=== PATIENT | female | born 1985 | race Caucasian/White ===

== ENCOUNTER 2020-03-08 11:02 | Emergency (ER) | payer MEDICAID, SELFPAY ==
[2020-03-08 12:03] VITALS: BP 117/73; PULSE 72; RESP 16; TEMP 36.5; O2SAT 97; BMI 34.0
--- NOTE | 2020-03-08 12:24 | ED_ITS ---
HPI - Abdominal Pain General: Chief Complaint: Abdominal Pain Stated Complaint: abd pain/N/V/D Time Seen by Provider: 03/08/20 12:08 Source: patient Mode of arrival: ambulatory Limitations: no limitations History of Present Illness: HPI narrative: 34-year-old female patient presents to the emergency department with 4-day history of lower abdominal pain. She reports pain is located in her lower abdomen and her pubic area. She reports history of partial hysterectomy, x2, tubal ligation; just moved here from [place] has not established a primary care physician. She reports chronic abdominal pain since 2016. States medicated with hydrocodone which did not help pain. States pain was intermittent until 4 days ago. Has progressively worsened. She reports nausea, denies vomiting or fever/chills. She reports foul-smelling gas, last normal bowel movement yesterda. Reports some diarrhea today. MD elicited complaint: abdominal pain Pertinent past history: other (Chronic abdominal pain, exploratory lap with scar/adhesion tissue removal 2016.) Onset (ago): day(s) (4) Pain Consistency: constant Location: Suprapubic and Pelvis Severity: moderate Quality: cramping, aching and dull Exacerbating factors: movement and other (with straightening of legs) Relieving factors: rest Associated Symptoms: Reports bloating, change in stool character, diarrhea, dysuria, excessive flatus, loose stools and nausea; Denies chills and fever(s) Review of Systems General: Reports: 10 or more systems reviewed and unremarkable except in HPI and below Const: Denies: fever(s), chills or diaphoresis Eyes: Denies: blurry vision or eye redness ENMT: Denies: throat pain, dental pain or disequilibrium Card: Denies: chest pain, palpitations or irregular heart rhythm Resp: Denies: dyspnea, productive cough, non-productive cough or wheezing GI: Reports: nausea, diarrhea, bloating, excessive flatus and change in stool character : Reports: dysuria Musc: Reports: back pain (lower); Denies: neck pain, joint pain, joint warmth or joint stiffness Skin/Breast: Denies: rash or pruritus Neuro: Reports: difficulty walking (due to abdominal pain); Denies: headache(s), numbness in extremities, weakness in extremities or behavioral changes Psych: Reports: anxiety and depression; Denies: visual hallucinations, auditory hallucinations, suicidal ideation or homicidal ideation Jc/Lymph: Denies: easy bruising PFSH ED PFSH: Social History (Updated 03/08/20 @ 12:06 by Shaggy Yip RN) Smoking and tobacco status: never smoked Alcohol intake: current Alcohol intake frequency: holidays/special occasions only Substance/Drug Use: current Substance/Drug use frequency: few times a month Substance/Drug use type: Marijuana Current gender identity: Female Female Reproductive History: Spontaneous abortions: No Physical Exam Const: COMMON NORMALS: patient oriented x3, healthy appearing and alert GENERAL APPEARANCE: cooperative, disheveled, diaphoretic, well hydrated and other (appears in pain) NUTRITIONAL APPEARANCE: obese ORIENTATION/CONSCIOUSNESS: Yes awake, Yes oriented to person, Yes oriented to place and Yes oriented to time HENMT: COMMON NORMALS: normocephalic, Normal external nose present and moist oral mucous membranes HEAD & SCALP: normocephalic NOSE: Normal external nose present Eye: COMMON NORMALS: Equal, round and reactive pupils present and EOMs intact bilaterally GENERAL EYE: appearance normal, both eyes and all related structures PUPIL: Yes Equal, round and reactive pupils present Neck/C-Spine: COMMON NORMALS: full ROM and no lymphadenopathy GENERAL: Yes normal visual inspection and Yes trachea midline CERVICAL SPINE: Yes cervical ROM normal Lymph: LYMPHATIC: no lymphadenopathy noted Chest: COMMONS NORMALS: normal inspection of the chest Resp: COMMON NORMALS: normal respiratory effort and clear to auscultation bilaterally EFFORT & INSPECTION: Yes able to speak in complete sentences AUSCULTATION: clear to auscultation bilaterally Cardio: COMMON NORMALS: regular rhythm, S1 normal heart sound present, S2 normal heart sound present and Peripheral pulses 2+ throughout RHYTHM: regular rhythm HEART SOUNDS: S1 normal heart sound present and S2 normal heart sound present PERIPHERAL PULSES: Peripheral pulses 2+ throughout GI: COMMON NORMALS: Soft to palpation INSPECTION: Yes abdominal distension, Yes central obesity, Yes scar, No Laceration(s) present (GI), No GI erythema present and Yes Abdominal panniculus present AUSCULTATION: Yes normoactive bowel sounds PALPATION: Yes Soft to palpation and Yes Tenderness to palpation present (GI) Details: RLQ, RUQ and other (pubis) RECTAL EXAM: no laceration(s) noted : COMMON NORMALS: Yes no CVA tenderness BLADDER/KIDNEY EXAM: Yes no CVA tenderness Back/Pelvis: COMMON NORMALS: no CVA tenderness and thoracic and lumbar spine normal to inspection THORACIC SPINE/UPPER BACK: Yes normal to inspection LUMBAR SPINE/LOWER BACK: Yes normal to inspection Extremity: COMMON NORMALS: normal to inspection and capillary refill normal Neuro: COMMON NORMALS: patient oriented x3 and no focal motor deficits SENSORIUM/ORIENTATION: Yes alert, Yes oriented to person, Yes oriented to place and Yes oriented to time Psych: COMMON NORMALS: mental status grossly normal, Normal thought process present and cooperative ACTIVITY/MOTOR BEHAVIOR: Yes appropriate eye contact THOUGHT PROCESS: Normal thought process present Skin: COMMON NORMALS: no rashes or lesions noted and turgor normal GENERAL SKIN EXAM: no rashes or lesions noted and turgor normal Course Vital Signs: Vital signs: Vital Signs Temperature 97.7 F 03/08/20 12:03 Pulse Rate 53 L 03/08/20 13:43 Respiratory Rate 20 H 03/08/20 15:29 Blood Pressure 123/72 03/08/20 13:43 Pulse Oximetry 99 03/08/20 13:43 MDM - Abdominal Pain Differential Diagnosis: Differential diagnosis abdominal pain: Likely acute appendicitis, gastroenteritis and pancreatitis Lab Data: Labs: Lab Results 03/08/20 03/08/20 03/08/20 Range/Units 12:17 12:17 12:17 WBC 9.2 (4.0-10.0) 10^3/ uL RBC 4.75 (4.1-5.3) 10^6/u L Hgb 13.4 (11.5-15.3) g/dL Hct 41.8 (37.0-47.0) % MCV 88.0 (81-99) fL MCH 28.2 (28.0-34.0) pg MCHC 32.1 (30.0-36.0) g/dL RDW 14.2 (12.1-15.1) % Plt Count 235 (130-400) 10^3/c mm MPV 9.6 (7.4-10.4) fL Neut % (Auto) 63.6 % Lymph % (Auto) 26.9 % [place] % (Auto) 5.0 % Eos % (Auto) 3.3 % Baso % (Auto) 0.9 % Neut # (Auto) 5.84 (1.8-7.7) 10^3/u L Lymph # (Auto) 2.5 (0.8-4.8) 10^3/u L [place] # (Auto) 0.5 (0.2-0.9) 10^3/u L Eos # (Auto) 0.3 (0.0-0.8) 10^3/u L Baso # (Auto) 0.1 (0.0-0.1) 10^3/u L Nucleated RBC % (a uto) 0 % Nucleated RBCs # 0.0 /100WBC Sodium 138 (136-145) mmol/L Potassium 4.2 (3.5-5.1) mmol/L Chloride 105 (98-107) mmol/L Carbon Dioxide 24 (22-29) mmol/L Anion Gap 13.2 (5-19) BUN 14 (6-20) mg/dL Creatinine 0.8 (0.5-0.9) mg/dL GFR Calculation 81.2 L (90-130) mL/min Glucose 96 (65-115) mg/dL Calculated Osmolal ity 286 (285-295) mOsm/k g Calcium 9.6 (8.5-10.5) mg/dL Total Bilirubin 0.4 (0.15-1.2) mg/dL AST 12 (0-32) U/L ALT 12 (0-33) U/L Alkaline Phosphata se 55 (35-105) IU/L Total Protein 7.0 (6.6-8.7) g/dL Albumin 4.3 (3.5-5.2) g/dL Globulin 2.7 (1.3-4.6) g/dL Lipase 25 (13-60) U/L HCG, Qual Negative (Negative) Urine Color (Yellow) Urine Appearance (CLEAR) Urine pH (5-7) Ur Specific Gravit y (1.005-1.030) Urine Protein (Negative) Urine Glucose (UA) (Normal) Urine Ketones (Negative) Urine Blood (Negative) Urine Nitrate (Negative) Urine Bilirubin (Negative) Urine Urobilinogen (Negative) mg/dL Ur Leukocyte Britni ase (Negative) 03/08/20 Range/Units 12:17 WBC (4.0-10.0) 10^3/ uL RBC (4.1-5.3) 10^6/u L Hgb (11.5-15.3) g/dL Hct (37.0-47.0) % MCV (81-99) fL MCH (28.0-34.0) pg MCHC (30.0-36.0) g/dL RDW (12.1-15.1) % Plt Count (130-400) 10^3/c mm MPV (7.4-10.4) fL Neut % (Auto) % Lymph % (Auto) % [place] % (Auto) % Eos % (Auto) % Baso % (Auto) % Neut # (Auto) (1.8-7.7) 10^3/u L Lymph # (Auto) (0.8-4.8) 10^3/u L [place] # (Auto) (0.2-0.9) 10^3/u L Eos # (Auto) (0.0-0.8) 10^3/u L Baso # (Auto) (0.0-0.1) 10^3/u L Nucleated RBC % (a uto) % Nucleated RBCs # /100WBC Sodium (136-145) mmol/L Potassium (3.5-5.1) mmol/L Chloride (98-107) mmol/L Carbon Dioxide (22-29) mmol/L Anion Gap (5-19) BUN (6-20) mg/dL Creatinine (0.5-0.9) mg/dL GFR Calculation (90-130) mL/min Glucose (65-115) mg/dL Calculated Osmolal ity (285-295) mOsm/k g Calcium (8.5-10.5) mg/dL Total Bilirubin (0.15-1.2) mg/dL AST (0-32) U/L ALT (0-33) U/L Alkaline Phosphata se (35-105) IU/L Total Protein (6.6-8.7) g/dL Albumin (3.5-5.2) g/dL Globulin (1.3-4.6) g/dL Lipase (13-60) U/L HCG, Qual (Negative) Urine Color Yellow (Yellow) Urine Appearance Clear (CLEAR) Urine pH 5 (5-7) Ur Specific Gravit y 1.015 (1.005-1.030) Urine Protein Neg (Negative) Urine Glucose (UA) Norm (Normal) Urine Ketones Negative (Negative) Urine Blood Neg (Negative) Urine Nitrate Negative (Negative) Urine Bilirubin Neg (Negative) Urine Urobilinogen Norm (Negative) mg/dL Ur Leukocyte Britni ase Negative (Negative) Imaging Data ^: CT Abd/Pel: Radiologist's impression: [facility] [place] [address] CT Scan Report Signed Patient: Jackelyn Lara Unit #: [id number] : [id number] Age/Sex: 34 / F ADM Date: 03/08/20 Loc: ER Room/Bed: Attending Dr: Ordering Provider/Ordering MD: Kimmy Leija Date of Service: 03/08/20 Procedure(s): CT abdomen pelvis w con* [id number] Accession Number(s): [id number] Report Number: [id number] PROCEDURE INFORMATION: Exam: CT Abdomen And Pelvis With Contrast Exam date and time: 03/08/2020 3:17 PM Age: 34 years old Clinical indication: Abdominal pain; Localized; Lower TECHNIQUE: Imaging protocol: Computed tomography of the abdomen and pelvis with intravenous contrast. Radiation optimization: All CT scans at this facility use at least one of these dose optimization techniques: automated exposure control; mA and/or kV adjustment per patient size (includes targeted exams where dose is matched to clinical indication); or iterative reconstruction. Contrast material: OMNI 300; Contrast volume: 95 ml; Contrast route: INTRAVENOUS (IV); COMPARISON: No relevant prior studies available. RADIATION DOSE METRICS: Total DLP (mGy-cm): 1049.56 FINDINGS: Liver: A few tiny hepatic hypodensities are too small to characterize. Gallbladder and bile ducts: Normal. No calcified stones. No ductal dilation. Pancreas: Normal. No ductal dilation. Spleen: Normal. No splenomegaly. Adrenal glands: Normal. No mass. Kidneys and ureters: There is no evidence of hydronephrosis. There is no evidence of renal calcifications. Stomach and bowel: There is no evidence of intestinal perforation or obstruction. There is no evidence of colitis/diverticulitis. There is moderately excessive colonic stool content. Appendix: A normal appendix is identified. Intraperitoneal space: Unremarkable. No free air. No significant fluid collection. Vasculature: Unremarkable.No abdominal aortic aneurysm. Lymph nodes: Unremarkable.No enlarged lymph nodes. Urinary bladder: There is nonspecific bladder wall thickening. This may be related to incomplete distention. Reproductive: There has been a hysterectomy. The ovaries/adnexa are unremarkable. Bones/joints: Unremarkable. No acute fracture. There are moderate degenerative changes at the pubic symphysis. Soft tissues: There is a tiny fat filled umbilical hernia with mild haziness of the periumbilical fat that may reflect mild cellulitis without an abscess. There is subtle induration of the fat in the pelvis/lower buttocks bilaterally on image 84 that may reflect recent contusion or strain just distal to the insertion of the hamstring tendons. There is no fluid collection and tendon insertions are intact. CT/CT abdomen pelvis w con* [id number] IMPRESSION: 1. There is a tiny fat filled umbilical hernia with mild haziness of the periumbilical fat that may reflect mild cellulitis without an abscess. 2. There is subtle induration of the fat in the pelvis/lower buttocks bilaterally on image 84 that may reflect recent contusion or strain just distal to the insertion of the hamstring tendons. There is no fluid collection and tendon insertions are intact. 3. The solid organs are intact. No bowel thickening or inflammatory changes. No hydronephrosis. Radiation Dose CTDIVOL = (mGy): DLP = 1049.56 (mGy-cm) Dictated By: Jigna Gillette Signed By: Jigna Gillette Signed Date/Time: 03/08/201558 DD/ 56 Discharge Plan Discharge Patient Disposition: Home Clinical Impression: Constipation Qualifiers: Constipation type: slow transit constipation Qualified Code(s): K59.01 - Slow transit constipation Abdominal pain Qualifiers: Abdominal location: generalized Qualified Code(s): R10.84 - Generalized abdominal pain Condition: Stable Prescriptions: New Miralax 17 gram/dose powder 17 g PO DAILY Qty: 238 RF: 0 No Action gabapentin 300 mg capsule 300 mg PO DAILY RF: 0 fluoxetine [Prozac] 40 mg capsule 40 mg PO DAILY RF: 0 lithium carbonate 300 mg capsule 900 mg PO DAILY Qty: 90 RF: 1 ibuprofen 200 mg Tablet 800 mg PO PRN RF: 0 Tylenol PM Extra Strength 25-500 mg Tablet 2 tab PO BEDTIME PRN (Reason: unknown) RF: 0 Discharge Orders: Discharge Order (Routine); Ordered 03/08/20 Ordered By: Kimmy Leija Discharge Diet: GI Soft Discharge Activity: Resume usual activity Patient Instructions: Constipation (ED), Abdominal Pain (ED) Activity Restrictions/Additional Instructions: Take mag citrate until all gone, may place on ice to help tolerate taste. High-fiber diet encouraged, fruits and vegetables in your diet are essential to help with constipation Return to the emergency department if you develop worsening abdominal pain, fever, nausea vomiting Follow-up with a primary care provider this week without fail Coding Level of Care Code ED [facility] Manager for Chg Fwd Exam Comprehensive
[2020-03-08 12:35] VITALS: RESP 18
[2020-03-08 12:35] LABS: Add Urine Microscopic? NO
[2020-03-08] MEDS: ondansetron 2 mg/ML SDV 2 mL 4 MG IVP (12:35)
[2020-03-08] MEDS: morphine 4 mg/mL SDV 1 mL 2 MG IVP ×2 (12:35→15:29)
[2020-03-08 12:39] LABS: Basophils # 0.1 10^3/uL (0.0-0.1); Basophils % 0.9 %; Eosinophils # 0.3 10^3/uL (0.0-0.8); Eosinophils % 3.3 %; Hematocrit 41.8 % (37.0-47.0); Hemoglobin 13.4 g/dL (11.5-15.3); Lymphocytes # 2.5 10^3/uL (0.8-4.8); Lymphocytes % 26.9 %; Mean Corpuscular HGB Conc 32.1 g/dL (30.0-36.0); Mean Corpuscular Hemoglobin 28.2 pg (28.0-34.0); Mean Platelet Volume 9.6 fL (7.4-10.4); Monocytes # 0.5 10^3/uL (0.2-0.9); Neutrophils # 5.84 10^3/uL (1.8-7.7); Neutrophils % 63.6 %; Nucleated Red Blood Cells % 0 %; Platelet Count 235 10^3/cmm (130-400); Red Blood Count 4.75 10^6/uL (4.1-5.3); Red Cell Distribution Width 14.2 % (12.1-15.1); White Blood Count 9.2 10^3/uL (4.0-10.0)
[2020-03-08 12:58] LABS: HCG, Serum Qual Negative (Negative)
[2020-03-08 13:02] LABS: Alanine Aminotransferase 12 U/L (0-33); Albumin Level 4.3 g/dL (3.5-5.2); Alkaline Phosphatase 55 IU/L (35-105); Anion Gap 13.2 (5-19); Aspartate Amino Transferase 12 U/L (0-32); Blood Urea Nitrogen 14 mg/dL (6-20); Calcium 9.6 mg/dL (8.5-10.5); Carbon Dioxide 24 mmol/L (22-29); Chloride 105 mmol/L (98-107); Globulin 2.7 g/dL (1.3-4.6); Glomerular Filtration Rate 81.2 mL/min (90-130); Glucose 96 mg/dL (65-115); Lipase 25 U/L (13-60); Osmolality Calculated 286 mOsm/kg (285-295); Potassium 4.2 mmol/L (3.5-5.1); Sodium 138 mmol/L (136-145); Total Bilirubin 0.4 mg/dL (0.15-1.2)
[2020-03-08 13:43] VITALS: BP 123/72; PULSE 53; RESP 18; O2SAT 99
[2020-03-08 14:43] LABS: Bilirubin Urine Neg (Negative); Blood Urine Neg (Negative); Glucose Urine UA Norm (Normal); Ketones Urine Negative (Negative); Leukocyte Esterase Urine Negative (Negative); Nitrate Urine Negative (Negative); Protein Urine Neg (Negative); Specific Gravity, Urine 1.015 (1.005-1.030); Urine Appearance Clear (CLEAR); Urine Color Yellow (Yellow); Urobilinogen Urine Norm (Negative); pH Urine 5 (5-7)
--- NOTE | 2020-03-08 14:53 | CTR_ITS ---
PROCEDURE INFORMATION: Exam: CT Abdomen And Pelvis With Contrast Exam date and time: 03/08/2020 3:17 PM Age: 34 years old Clinical indication: Abdominal pain; Localized; Lower TECHNIQUE: Imaging protocol: Computed tomography of the abdomen and pelvis with intravenous contrast. Radiation optimization: All CT scans at this facility use at least one of these dose optimization techniques: automated exposure control; mA and/or kV adjustment per patient size (includes targeted exams where dose is matched to clinical indication); or iterative reconstruction. Contrast material: OMNI 300; Contrast volume: 95 ml; Contrast route: INTRAVENOUS (IV); COMPARISON: No relevant prior studies available. RADIATION DOSE METRICS: Total DLP (mGy-cm): 1049.56 FINDINGS: Liver: A few tiny hepatic hypodensities are too small to characterize. Gallbladder and bile ducts: Normal. No calcified stones. No ductal dilation. Pancreas: Normal. No ductal dilation. Spleen: Normal. No splenomegaly. Adrenal glands: Normal. No mass. Kidneys and ureters: There is no evidence of hydronephrosis. There is no evidence of renal calcifications. Stomach and bowel: There is no evidence of intestinal perforation or obstruction. There is no evidence of colitis/diverticulitis. There is moderately excessive colonic stool content. Appendix: A normal appendix is identified. Intraperitoneal space: Unremarkable. No free air. No significant fluid collection. Vasculature: Unremarkable.No abdominal aortic aneurysm. Lymph nodes: Unremarkable.No enlarged lymph nodes. Urinary bladder: There is nonspecific bladder wall thickening. This may be related to incomplete distention. Reproductive: There has been a hysterectomy. The ovaries/adnexa are unremarkable. Bones/joints: Unremarkable. No acute fracture. There are moderate degenerative changes at the pubic symphysis. Soft tissues: There is a tiny fat filled umbilical hernia with mild haziness of the periumbilical fat that may reflect mild cellulitis without an abscess. There is subtle induration of the fat in the pelvis/lower buttocks bilaterally on image 84 that may reflect recent contusion or strain just distal to the insertion of the hamstring tendons. There is no fluid collection and tendon insertions are intact. CT/CT abdomen pelvis w con* [id number] IMPRESSION: 1. There is a tiny fat filled umbilical hernia with mild haziness of the periumbilical fat that may reflect mild cellulitis without an abscess. 2. There is subtle induration of the fat in the pelvis/lower buttocks bilaterally on image 84 that may reflect recent contusion or strain just distal to the insertion of the hamstring tendons. There is no fluid collection and tendon insertions are intact. 3. The solid organs are intact. No bowel thickening or inflammatory changes. No hydronephrosis. Radiation Dose CTDIVOL = (mGy): DLP = 1049.56 (mGy-cm)
[2020-03-08 15:29] VITALS: RESP 20
[2020-03-08] MEDS: iohexol 300 mg/mL 100 mL Btl IV (15:30)
[2020-03-08] MEDS: magnesium citrate Btl 296 mL PO (16:49)
--- NOTE | 2020-03-10 14:23 | DCPLANNER ---
airport operations manager had message to speak with patient about getting established with a primary care physician. airport operations manager spoke with patient, and she stated that she has a primary care and has an appointment scheduled.
== END 2020-03-08 16:49 | disposition home or self-care (01) ==
PROVIDERS: Emergency Medicine; Emergency Provider Nurse Practitioner Family
DX: K59.01 Slow transit constipation (principal)
CPT/HCPCS: 12345; 74177; 80053; 81003; 83690; 84703; 85025; 96374; 96375; 96376; 99282; 99283; J2270; J2405; Q9967

== ENCOUNTER 2020-03-21 11:15 | Outpatient (CLI) | payer MEDICAID, SELFPAY ==
--- NOTE | 2020-03-21 11:23 | XR_ITS ---
WS: [id number] Acute abdomen series, 03/21/2020 Clinical Data: K62.89 - Other specified diseases of anus and rectum Comparison: None. Findings: In the chest there are no nodules, masses or effusions. The heart is normal. The pulmonary vascularity is not increased. The bones of the thorax are unremarkable. No free air is seen beneath the diaphragms. No abnormal intra-abdominal masses or calcifications are seen. There is a moderate amount of fecal material throughout colon. No dilated small bowel or colon is seen. XR/XR acute abdomen series [id number] Impression: Negative acute abdomen series.
== END 2020-03-21 11:16 | disposition home or self-care (01) ==
LOC: RADWPI 11:20
PROVIDERS: PCP Family Medicine; Visit Provider Surgery
DX: K62.89 Other specified diseases of anus and rectum (principal)
CPT/HCPCS: 74022

== ENCOUNTER 2020-03-21 12:22 | Outpatient (CLI) | payer MEDICAID, SELFPAY ==
[2020-03-21 12:42] LABS: Add Urine Microscopic? NO
[2020-03-21 12:46] LABS: Basophils # 0.1 10^3/uL (0.0-0.1); Basophils % 0.8 %; Eosinophils # 0.5 10^3/uL (0.0-0.8); Hematocrit 40.5 % (37.0-47.0); Hemoglobin 13.3 g/dL (11.5-15.3); Lymphocytes # 2.9 10^3/uL (0.8-4.8); Mean Corpuscular HGB Conc 32.8 g/dL (30.0-36.0); Mean Corpuscular Hemoglobin 28.7 pg (28.0-34.0); Mean Corpuscular Volume 87.5 fL (81-99); Mean Platelet Volume 9.1 fL (7.4-10.4); Monocytes # 0.5 10^3/uL (0.2-0.9); Monocytes % 4.7 %; Neutrophils # 7.23 10^3/uL (1.8-7.7); Neutrophils % 64.1 %; Nucleated Red Blood Cells % 0 %; Platelet Count 248 10^3/cmm (130-400); Red Blood Count 4.63 10^6/uL (4.1-5.3); Red Cell Distribution Width 14.3 % (12.1-15.1); White Blood Count 11.3 10^3/uL (4.0-10.0)
[2020-03-21 12:56] LABS: Bilirubin Urine Neg (Negative); Blood Urine Neg (Negative); Glucose Urine UA Norm (Normal); Ketones Urine Negative (Negative); Leukocyte Esterase Urine Negative (Negative); Nitrate Urine Negative (Negative); Protein Urine Neg (Negative); Sulfosalicylic Acid Urine Negative (Negative); Urine Appearance Clear (CLEAR); Urine Color Yellow (Yellow); Urobilinogen Urine Norm (Negative); pH Urine 8 (5-7)
[2020-03-21 13:04] LABS: Alanine Aminotransferase 12 U/L (0-33); Albumin Level 4.4 g/dL (3.5-5.2); Alkaline Phosphatase 59 IU/L (35-105); Anion Gap 14.1 (5-19); Aspartate Amino Transferase 12 U/L (0-32); Blood Urea Nitrogen 11 mg/dL (6-20); Calcium 9.8 mg/dL (8.5-10.5); Carbon Dioxide 26 mmol/L (22-29); Chloride 103 mmol/L (98-107); Globulin 2.6 g/dL (1.3-4.6); Glomerular Filtration Rate 70.8 mL/min (90-130); Glucose 111 mg/dL (65-115); Lipase 27 U/L (13-60); Osmolality Calculated 288 mOsm/kg (285-295); Potassium 4.1 mmol/L (3.5-5.1); Sodium 139 mmol/L (136-145); Total Bilirubin 0.5 mg/dL (0.15-1.2)
== END 2020-03-21 12:23 | disposition home or self-care (01) ==
LOC: LAB 12:25
PROVIDERS: PCP Family Medicine; Visit Provider Surgery
DX: K62.89 Other specified diseases of anus and rectum (principal); R10.9 Unspecified abdominal pain
CPT/HCPCS: 80053; 81003; 83690; 85025

== ENCOUNTER 2020-05-05 06:00 | Outpatient (RCR) | payer MEDICAID, SELFPAY | END 2020-05-18 23:59 | disposition home or self-care (01) | LOC: MPT 06:00 | PROVIDERS: PCP Family Medicine; Referring Provider Family Medicine; Visit Provider Family Medicine | DX: R10.2 Pelvic and perineal pain (principal); G89.29 Other chronic pain | CPT/HCPCS: 97110; 97140; 97161 ==

== ENCOUNTER 2020-05-19 06:00 | Outpatient (RCR) | payer MEDICAID, SELFPAY | END 2020-06-15 23:59 | disposition home or self-care (01) | LOC: MPT 06:00 | PROVIDERS: PCP Family Medicine; Referring Provider Family Medicine; Visit Provider Family Medicine | DX: R10.2 Pelvic and perineal pain (principal); G89.29 Other chronic pain | CPT/HCPCS: 97140; 97530 ==

== ENCOUNTER 2020-05-29 12:28 | Emergency (ER) | payer MEDICAID, SELFPAY ==
[2020-05-29 12:35] VITALS: BP 132/64; PULSE 64; RESP 16; TEMP 36.9; O2SAT 99; BMI 33.8
[2020-05-29 13:11] LABS: Add Urine Microscopic? NO; Bilirubin Urine Neg (Negative); Blood Urine Neg (Negative); Glucose Urine UA Norm (Normal); Ketones Urine Negative (Negative); Leukocyte Esterase Urine Negative (Negative); Nitrate Urine Negative (Negative); Protein Urine Neg (Negative); Urine Appearance Clear (CLEAR); Urine Color Yellow (Yellow); Urobilinogen Urine Norm (Negative); pH Urine 5 (5-7)
[2020-05-29 15:25] LABS: Hematocrit 38.3 % (37.0-47.0); Mean Corpuscular HGB Conc 33.9 g/dL (30.0-36.0); Mean Corpuscular Hemoglobin 29.1 pg (28.0-34.0); Mean Corpuscular Volume 85.7 fL (81-99); Mean Platelet Volume 9.5 fL (7.4-10.4); Platelet Count 258 10^3/cmm (130-400); Red Blood Count 4.47 10^6/uL (4.1-5.3); Red Cell Distribution Width 14.4 % (12.1-15.1); White Blood Count 15.3 10^3/uL (4.0-10.0)
--- NOTE | 2020-05-29 15:28 | CT_ITS ---
WS: [id number] CT ABDOMEN PELVIS TECHNIQUE: Contrast-enhanced CT of the abdomen and pelvis with coronal and sagittal reformatted image s. CLINICAL INFORMATION: abd pain worsening, elevated WBC, possible Gallstones/polyps COMPARISON: CT chest and ultrasound 2020 DLP: 1096.[address] scans at [facility] use at least one of these dose optimization techniques: automat ed exposure control; mA and/or kV adjustment per patient size (includes targeted exams where dose is matched to clinical indication); or iterative reconstruction. FINDINGS:Small enhancing right corpus luteum or hemorrhagic cyst right ovary measuring 1.5 CM. Small amount of free fluid in the right cul-de-sac. This can be followed up with ultrasound. Prior hysterec art. Mild diffuse fatty infiltration of the liver. Normal gallbladder. Normal spleen. Lung bases are well aerated. Normal GE junction. Normal portal vein and splenic vein. No fluid in the gallbladder fossa. Small gallbladder polyps better seen on the recent ultrasound. No gallbladder wall thickening. Adrenal glands are normal. Normal renal parenchymal enhancement. No hydronephrosis. Normal pancreas. Splenic vein and superior mesenteric vein are normal. Normal sigmoid colon. No evidence of high-grade small or large bowel obstruction. CT/CT abdomen pelvis w con* [id number] IMPRESSION: 1. Small enhancing right corpus luteum or hemorrhagic cyst right ovary measuri ng 1.3 CM appears improved compared to May 19, 2020 CT. Small amount of fr ee fluid in the right cul-de-sac. This can be followed up with ultrasound. 2. Mild hepatomegaly with enlargement of the right hepatic lobe. Mild diffuse fatty infiltration of the liver. 3. Small gallbladder polyps better visualized on recent ultrasound. No fluid i n the gallbladder fossa. 4. No evidence of small or large bowel obstruction. 5. Normal renal parenchymal enhancement bilaterally. No hydronephrosis.
[2020-05-29] MEDS: ondansetron 2 mg/ML SDV 2 mL 4 MG IVP (15:32)
--- NOTE | 2020-05-29 15:33 | ED_ITS ---
HPI - Abdominal Pain General: Chief Complaint: Abdominal Pain Stated Complaint: ABDOMINAL PAIN Time Seen by Provider: 05/29/20 15:15 History of Present Illness: HPI narrative: The patient is a 34-year-old female with past medical history UTIs and cholelithiasis who comes to the ER complaining of severe lower and upper right abdominal pain since last night. She has had the pain worsening for past 5 days but last night it became severe. She called a telemedicine appointment and they told her to come to the ER. Chart review reveals she has some chronic abdominal pain and umbilical hernia and is seeing Dr. Rodríguez as well for these problems. MD elicited complaint: abdominal pain Pertinent past history: past UTI Location: LUQ, RUQ and LLQ Severity: severe Pain scale (0-10): 10 Quality: cramping and sharp Exacerbating factors: vomiting Associated Symptoms: Reports nausea and vomiting Review of Systems General: Reports: 10 or more systems reviewed and unremarkable except in HPI and below Const: Denies: fatigue Eyes: Denies: change in vision, blurry vision or eye redness ENMT: Denies: throat pain, swelling of lips/tongue, ear or mastoid pain or nasal congestion Card: Denies: chest pain, palpitations, irregular heart rhythm, edema, dyspnea on exertion or orthopnea Resp: Denies: dyspnea, productive cough or non-productive cough GI: Reports: abdominal pain, nausea and vomiting : Denies: flank pain, difficulty voiding, urinary frequency or urinary urgency Musc: Denies: neck pain, back pain, extremity pain, joint pain, joint redness, limited range of motion or muscle weakness Skin/Breast: Denies: rash, pruritus, erythema, skin pain or skin tenderness Neuro: Denies: headache(s), numbness in extremities, weakness in extremities, sensory changes, difficulty walking, dizziness, confusion or Slurred speech present Psych: Denies: anxiety or depression Endo: Denies: polyuria All/Imm: Denies: urticaria, throat swelling or tongue swelling PFSH ED PFSH: Medical History Bipolar disorder Borderline personality disorder YOLANDE (generalized anxiety disorder) History of stillbirth PTSD (post-traumatic stress disorder) Surgical History H/O section H/O esophagogastroduodenoscopy 2018 H/O tubal ligation H/O: hysterectomy History of laparoscopy S/P colonoscopic polypectomy Family History Mother Cancer Denies family history of Diabetes CAD (coronary artery disease) Anesthesia complication Bleeding disorder Hypertension Social History Smoking and tobacco status: current every day smoker Alcohol intake: current Alcohol intake frequency: holidays/special occasions only Household members: spouse Marital status: Current occupational status: unemployed History of recent travel: No Current gender identity: Female Female Reproductive History: Spontaneous abortions: No Physical Exam Const: COMMON NORMALS: no acute distress, average body habitus, patient oriented x3, no limitations, healthy appearing, alert and well nourished GENERAL APPEARANCE: cooperative, comfortable, well kempt and well developed ORIENTATION/CONSCIOUSNESS: Yes awake, Yes oriented to person, Yes oriented to place and Yes oriented to time HENMT: COMMON NORMALS: normocephalic, external ears normal and Normal external nose present HEAD & SCALP: normal to inspection and normocephalic NOSE: Normal external nose present EXTERNAL EAR: Yes external ears normal MOUTH: Normal oral and palatal mucosa present THROAT: posterior oropharynx normal Eye: COMMON NORMALS: Equal, round and reactive pupils present and EOMs intact bilaterally GENERAL EYE: appearance normal, both eyes and all related structures PUPIL: Yes Equal, round and reactive pupils present Neck/C-Spine: COMMON NORMALS: full ROM, no lymphadenopathy, no meningeal signs and no JVD GENERAL: Yes normal visual inspection Lymph: LYMPHATIC: no lymphadenopathy noted Chest: COMMONS NORMALS: normal inspection of the chest and normal palpation of entire chest wall Resp: COMMON NORMALS: normal respiratory effort, No retractions, No use of accessory muscles, clear to auscultation bilaterally and percussion normal EFFORT & INSPECTION: Yes able to speak in complete sentences AUSCULTATION: clear to auscultation bilaterally PERCUSSION: percussion normal Cardio: COMMON NORMALS: no JVD, regular rate, regular rhythm, S1 normal heart sound present, S2 normal heart sound present and Peripheral pulses 2+ throughout RATE: regular rate RHYTHM: regular rhythm HEART SOUNDS: S1 normal heart sound present and S2 normal heart sound present PERIPHERAL PULSES: Peripheral pulses 2+ throughout GI: COMMON NORMALS: Normal to inspection, nondistended, normoactive bowel sounds present, Soft to palpation and no masses INSPECTION: Yes normal to inspection PALPATION: Yes Soft to palpation and Yes Tenderness to palpation present (GI) (Mild tenderness in those areas. No rebound tenderness. Soft) Details: LLQ, RLQ and RUQ : COMMON NORMALS: Yes no CVA tenderness BLADDER/KIDNEY EXAM: Yes no CVA tenderness Back/Pelvis: COMMON NORMALS: no CVA tenderness, thoracic and lumbar spine normal to inspection, no thoracic nor lumbar tenderness and thoraco-lumbar ROM normal Extremity: COMMON NORMALS: normal to inspection, full ROM, capillary refill normal, no joint enlargement and no pedal edema GENERAL: Yes normal exam except as noted Neuro: COMMON NORMALS: patient oriented x3, CN's II-XII intact bilaterally, moves all extremities, no focal motor deficits, no sensory deficits noted and gait normal SENSORIUM/ORIENTATION: Yes alert, Yes oriented to person, Yes oriented to place and Yes oriented to time MENINGEAL SIGNS: Yes no meningeal signs Psych: COMMON NORMALS: mental status grossly normal, Normal thought process present, cooperative, normal affect and speech normal APPEARANCE: Yes well kempt ATTITUDE: Yes calm SPEECH: Yes normal speech THOUGHT PROCESS: Normal thought process present Skin: COMMON NORMALS: no rashes or lesions noted GENERAL SKIN EXAM: no rashes or lesions noted Course Vital Signs: Vital signs: Vital Signs Temperature 98.5 F 05/29/20 12:35 Pulse Rate 73 05/29/20 20:48 Respiratory Rate 18 05/29/20 19:18 Blood Pressure 124/83 05/29/20 19:04 Pulse Oximetry 97 05/29/20 20:48 MDM - Abdominal Pain MDM Narrative: Medical decision making narrative: The patient has been not vomiting and was dehydrated. She was given IV fluids and pain control which improved her pain. White count was 15 on arrival. Likely from vomiting and dehydration. CT abdomen pelvis was negative for any acute causes of pain but did show gallbladder polyps which she is aware of.. She has chronic abdominal pain and a psychiatric history likely contributing to her pain. Recommended following up as an outpatient with Dr. Rodríguez. Discussed with him on the phone and he agrees with the plan of care. Lab Data: Labs: Lab Results 05/29/20 05/29/20 05/29/20 Range/Units 12:51 15:16 15:16 WBC 15.3 H (4.0-10.0) 10^3/ uL RBC 4.47 (4.1-5.3) 10^6/u L Hgb 13.0 (11.5-15.3) g/dL Hct 38.3 (37.0-47.0) % MCV 85.7 (81-99) fL MCH 29.1 (28.0-34.0) pg MCHC 33.9 (30.0-36.0) g/dL RDW 14.4 (12.1-15.1) % Plt Count 258 (130-400) 10^3/c mm MPV 9.5 (7.4-10.4) fL Total Counted 100 (0-100) Atypical Lymphs % 1.0 (0-5) % Absolute Neutrophi ls 10.9 H (1.4-6.5) 10^3/c mm Segmented Neutroph ils 71 % Abs Segm Neuts (Ma n) 10.9 H (1.6-7.1) 10/cmm Band Neutrophils 0.0 % Abs Band Neuts (Ma n) 0.0 (0.0-1.2) 10^3/c mm Lymphocytes (Manua l) 23 % Monocytes (Manual) 3.0 % Absolute Monocytes 0.5 (0.1-0.6) 10^3/c mm Eosinophils (Manua l) 2 % Absolute Eosinophi ls 0.3 (0.0-0.7) 10^3/c mm Basophils (Manual) 0.0 % Absolute Basophils 0.0 (0.0-0.2) 10^3/c mm Platelet Estimate Normal (Normal) Sodium 141 (136-145) mmol/L Potassium 3.9 (3.5-5.1) mmol/L Chloride 105 (98-107) mmol/L Carbon Dioxide 21 L (22-29) mmol/L Anion Gap 18.9 (5-19) BUN 9 (6-20) mg/dL Creatinine 0.6 (0.5-0.9) mg/dL GFR Calculation 113.1 (90-130) mL/min Glucose 90 (65-115) mg/dL Calculated Osmolal ity 290 (285-295) mOsm/k g Lactate (0.5-2.2) mmol/L Calcium 8.2 L (8.5-10.5) mg/dL Total Bilirubin 0.5 (0.15-1.2) mg/dL AST 14 (0-32) U/L ALT 12 (0-33) U/L Alkaline Phosphata se 62 (35-105) IU/L Total Protein 6.8 (6.6-8.7) g/dL Albumin 3.9 (3.5-5.2) g/dL Globulin 2.9 (1.3-4.6) g/dL Lipase 18 (13-60) U/L HCG, Qual (Negative) Urine Color Yellow (Yellow) Urine Appearance Clear (CLEAR) Urine pH 5 (5-7) Ur Specific Gravit y 1.020 (1.005-1.030) Urine Protein Neg (Negative) Urine Glucose (UA) Norm (Normal) Urine Ketones Negative (Negative) Urine Blood Neg (Negative) Urine Nitrate Negative (Negative) Urine Bilirubin Neg (Negative) Urine Urobilinogen Norm (Negative) mg/dL Ur Leukocyte Britni ase Negative (Negative) Chestnut (0.6-1.2) mmol/L 05/29/20 05/29/20 05/29/20 Range/Units 15:16 15:35 20:05 WBC (4.0-10.0) 10^3/ uL RBC (4.1-5.3) 10^6/u L Hgb (11.5-15.3) g/dL Hct (37.0-47.0) % MCV (81-99) fL MCH (28.0-34.0) pg MCHC (30.0-36.0) g/dL RDW (12.1-15.1) % Plt Count (130-400) 10^3/c mm MPV (7.4-10.4) fL Total Counted (0-100) Atypical Lymphs % (0-5) % Absolute Neutrophi ls (1.4-6.5) 10^3/c mm Segmented Neutroph ils % Abs Segm Neuts (Ma n) (1.6-7.1) 10/cmm Band Neutrophils % Abs Band Neuts (Ma n) (0.0-1.2) 10^3/c mm Lymphocytes (Manua l) % Monocytes (Manual) % Absolute Monocytes (0.1-0.6) 10^3/c mm Eosinophils (Manua l) % Absolute Eosinophi ls (0.0-0.7) 10^3/c mm Basophils (Manual) % Absolute Basophils (0.0-0.2) 10^3/c mm Platelet Estimate (Normal) Sodium (136-145) mmol/L Potassium (3.5-5.1) mmol/L Chloride (98-107) mmol/L Carbon Dioxide (22-29) mmol/L Anion Gap (5-19) BUN (6-20) mg/dL Creatinine (0.5-0.9) mg/dL GFR Calculation (90-130) mL/min Glucose (65-115) mg/dL Calculated Osmolal ity (285-295) mOsm/k g Lactate 1.1 (0.5-2.2) mmol/L Calcium (8.5-10.5) mg/dL Total Bilirubin (0.15-1.2) mg/dL AST (0-32) U/L ALT (0-33) U/L Alkaline Phosphata se (35-105) IU/L Total Protein (6.6-8.7) g/dL Albumin (3.5-5.2) g/dL Globulin (1.3-4.6) g/dL Lipase (13-60) U/L HCG, Qual Negative (Negative) Urine Color (Yellow) Urine Appearance (CLEAR) Urine pH (5-7) Ur Specific Gravit y (1.005-1.030) Urine Protein (Negative) Urine Glucose (UA) (Normal) Urine Ketones (Negative) Urine Blood (Negative) Urine Nitrate (Negative) Urine Bilirubin (Negative) Urine Urobilinogen (Negative) mg/dL Ur Leukocyte Britni ase (Negative) Chestnut < 0.1 L (0.6-1.2) mmol/L Discharge Plan Discharge Patient Disposition: Home Clinical Impression: Abdominal pain, chronic, generalized, Gall bladder polyp Condition: Stable Prescriptions: [place] 5-325 mg tablet 1 tab PO Q6H PRN (Reason: pain) Qty: 20 RF: 0 No Action fluoxetine [Prozac] 40 mg capsule 40 mg PO DAILY RF: 0 olanzapine 7.5 mg tablet 7.5 mg PO DAILY RF: 0 lithium carbonate 300 mg capsule 900 mg PO DAILY Qty: 90 RF: 2 gabapentin 400 mg capsule 400 mg PO TID 30 Days Qty: 90 RF: 2 hydroxyzine HCl 25 mg tablet 25 mg PO DAILY PRN (Reason: anxiety) 30 Days Qty: 30 RF: 2 ropinirole 0.25 mg tablet 0.25 mg PO DAILY Qty: 30 RF: 0 ibuprofen 200 mg Tablet 800 mg PO PRN RF: 0 Tylenol PM Extra Strength 25-500 mg Tablet 2 tab PO BEDTIME PRN (Reason: unknown) RF: 0 Miralax 17 gram/dose powder 17 g PO DAILY Qty: 238 RF: 0 Discharge Orders: Discharge ED (Routine); Ordered 05/29/20 Ordered By: Asher Caal Referrals: Diann Oliveros MD [Primary Care Provider] - Discharge Diet: Advance as tolerated Discharge Activity: Resume usual activity Patient Instructions: Abdominal Pain (ED), Opioid Safety Activity Restrictions/Additional Instructions: You have abdominal pain of unclear cause but it is likely related to your chronic abdominal pain that you have daily. Please follow-up with Dr. Rodríguez in the clinic within a week and he will likely schedule surgery to remove your gallbladder at that time. Return to the ER with worsening symptoms. Take the hydrocodone for severe pain only and do not mix with drugs, alcohol, nor operate machinery while using this medication. Coding Level of Care Code ED [employer] for Roberto Lemus Exam Comprehensive
[2020-05-29 15:40] LABS: Absolute Eosinophils 0.3 10^3/cmm (0.0-0.7); Absolute Neutrophil 10.9 10^3/cmm (1.4-6.5); Absolute Segmented Neutrophil 10.9 10/cmm (1.6-7.1); Eosinophils 2 %; Lymphocytes 23 %; Monocytes Absolute 0.5 10^3/cmm (0.1-0.6); Platelet Estimate Normal (Normal); Segmented Neutrophils 71 %; Total Cells Counted 100 (0-100)
[2020-05-29] MEDS: iohexol 300 mg/mL 100 mL Btl IV (15:40)
[2020-05-29 15:56] LABS: Alanine Aminotransferase 12 U/L (0-33); Albumin Level 3.9 g/dL (3.5-5.2); Alkaline Phosphatase 62 IU/L (35-105); Anion Gap 18.9 (5-19); Aspartate Amino Transferase 14 U/L (0-32); Blood Urea Nitrogen 9 mg/dL (6-20); Calcium 8.2 mg/dL (8.5-10.5); Carbon Dioxide 21 mmol/L (22-29); Chloride 105 mmol/L (98-107); Globulin 2.9 g/dL (1.3-4.6); Glomerular Filtration Rate 113.1 mL/min (90-130); Glucose 90 mg/dL (65-115); Lipase 18 U/L (13-60); Osmolality Calculated 290 mOsm/kg (285-295); Potassium 3.9 mmol/L (3.5-5.1); Sodium 141 mmol/L (136-145); Total Bilirubin 0.5 mg/dL (0.15-1.2); Total Protein 6.8 g/dL (6.6-8.7)
[2020-05-29 16:22] LABS: HCG, Serum Qual Negative (Negative)
[2020-05-29] MEDS: morphine 4 mg/mL SDV 1 mL IM (16:26)
[2020-05-29] MEDS: sodium chloride 0.9% 1,000 ML 999 ML IV (16:27)
[2020-05-29 16:29] LABS: Lactate (Lactic Acid level) 1.1 mmol/L (0.5-2.2)
[2020-05-29 16:36] VITALS: BP 120/66; PULSE 57; O2SAT 99
[2020-05-29 17:24] VITALS: BP 128/73; PULSE 67; O2SAT 98
[2020-05-29 19:04] VITALS: BP 124/83; PULSE 70; O2SAT 100
[2020-05-29 19:18] VITALS: RESP 18
[2020-05-29] MEDS: morphine 4 mg/mL SDV 1 mL 2 MG IVP (19:18)
[2020-05-29 20:36] LABS: Lithium < 0.1 mmol/L (0.6-1.2)
[2020-05-29 20:48] VITALS: PULSE 73; O2SAT 97
== END 2020-05-29 20:48 | disposition home or self-care (01) ==
PROVIDERS: Family Medicine; Emergency Provider Family Medicine; PCP Family Medicine
DX: G89.29 Other chronic pain (principal); R10.84 Generalized abdominal pain; K82.4 Cholesterolosis of gallbladder; F17.210 Nicotine dependence, cigarettes, uncomplicated
CPT/HCPCS: 36415; 74177; 80053; 80178; 81003; 83605; 83690; 84703; 85007; 85027; 96361; 96372; 96374; 96375; 99283; J2270; J2405; J7030; Q9967

== ENCOUNTER → 2020-05-30 14:01 | Outpatient (BNVA) | payer MEDICAID, SELFPAY | PROVIDERS: PCP Family Medicine; Visit Provider Surgery | DX: Z01.818 Encounter for other preprocedural examination (principal) | CPT/HCPCS: 87635 ==

== ENCOUNTER 2020-06-02 09:17 | Day surgery (SDC) | payer MEDICAID, SELFPAY ==
[2020-05-30 16:45] VITALS: BMI 33.8
[2020-06-02] VITALS (10 sets, daily range): BP systolic 99–146; BP diastolic 63–99; PULSE 60–86; RESP 12–18; TEMP 36.2–36.9; O2SAT 95–100
--- NOTE | 2020-06-02 10:07 | P.ANESASSM_ITS ---
Pre-Anesthetic Assessment Pre-Anesthetic Assessment: Height/Weight: Height 1.55 m Weight 81.193 kg Temp Pulse Resp BP Pulse Ox 97.2 F L 60 18 99/63 95 06/02/20 09:55 06/02/20 09:55 06/02/20 09:55 06/02/20 09:55 06/02/20 09:55 Preop Diagnosis: Cholelithiasis Proposed Procedure: Operation Date: 06/02/20 10:35 Proposed Procedures p Laparoscopic Cholecystectomy 74690 k80.20(Not Applicable) - Cyrus Rodríguez MD Familial anesthetic complications: None Last intake: Intake Last Liquid Date 06/01/20 Last Liquid Time 23:59 Last Solid Date 06/01/20 Last Solid Time 22:00 Social: Social History: No alcohol and No tobacco Comment: Patient Vapes Exam: Pre-Anes Outpt Exam: alert, oriented x 3, clear to auscultation bilater ally and regular rate & rhythm Airway: Cervical ROM: WNL MP: 3 Dentition: Full Anesthetic Plan: ASA status: 1 Anesthesia: General Risk of > 500 ml blood loss (7ml/kg in children): No PFSH Anesthesia PFSH: Medical History Bipolar disorder Borderline personality disorder YOLANDE (generalized anxiety disorder) History of stillbirth PTSD (post-traumatic stress disorder) Surgical History H/O section H/O esophagogastroduodenoscopy 2018 H/O tubal ligation H/O: hysterectomy History of laparoscopy S/P colonoscopic polypectomy Family History Mother Cancer Denies family history of Diabetes CAD (coronary artery disease) Anesthesia complication Bleeding disorder Hypertension Social History Smoking and tobacco status: current every day smoker Alcohol intake: current Alcohol intake frequency: holidays/special occasions only Household members: spouse Marital status: Current occupational status: unemployed History of recent travel: No Current gender identity: Female Female Reproductive History: Spontaneous abortions: No Data Anesthesia Cardiac Studies: No Data to Display
[2020-06-02] MEDS: sodium chloride 0.9% 1,000 ML 30 ML IV (10:21)
--- NOTE | 2020-06-02 12:34 | W.PM.OPSUD ---
Surgery/Procedure H&P Update DATE OF PROCEDURE: June 02, 2020 DATE H&P PERFORMED: 05/26/20 H&P UPDATE INFORMATION: I have reviewed H&P completed within last 30 days, I have examined patient prior to procedure and No changes to prior documentation PREOP DIAGNOSIS: Cholelithiasis PLANNED PROCEDURE: Operation Date: 06/02/20 10:35 Proposed Procedures p Laparoscopic Cholecystectomy 81408 k80.20(Not Applicable) - Cyrus Rodríguez MD
--- NOTE | 2020-06-02 13:50 | P.OP_ITS ---
Operative Report Date of procedure: June 02, 2020 Pre-op Diagnosis: Cholelithiasis Pre-op Diagnosis: Chronic abdominal pain status post prior laparoscopy Post-op Diagnosis: No evidence of adhesions Normal small bowel, colon, stomach, liver Cholelithiasis Procedure Done: Laparoscopic cholecystectomy Specimens removed/disposition: Gallbladder Surgeon: Cyrus Rodríguez Anesthesia: General Condition: stable Disposition: PACU Procedure: The patient was taken to the operating room and was intubated under general anesthesia. After the antibiotic had been administered, the abdomen was prepped and draped in a sterile manner. Using a #15 blade, a 1 centimeter infraumbilical curvilinear incision was made and using an open Heath technique the peritoneal cavity was entered. A 10 millimeter port was placed and 15 millimeters of pneumoperitoneum was created. A 10 millimeter, 30 degrees scope was then introduced. Three 5 millimeter ports were placed in the epigastric, mi dclavicular and the anterior axillary line two fingerbreadths below the costal margin on the right side under the direct visualization. There were no lesions noted within the peritoneal cavity. The stomach, small bowel, colon, liver and spleen appeared normal. Ratcheted forceps were introduced into the lateral most port and was used to retract the fundus of the gallbladder cephalad and using fo rceps the infundibulum of the gallbladder was retracted laterally. Using L-hook cautery the peritoneum overlying the Calot's triangle was opened medially and laterally until the cystic duct and the cystic artery were skeletonized. Dissection was carried along the body of the gallbladder and after ensuring critical view of safety, 4 clips applied on the cystic duct and 3 clips applied on the cystic artery and cut leaving, 3 clips on the remaining portion of the duct and 2 clips on the remaining portion of the artery. The rest of the gallbladder was dissected off the liver using L-hook cautery. There was no bleeding or bile leaking noted from the gallbladder fossa and the clips appeared to be in place. An EndoCatch bag was introduced to remove the gallbladder. All the ports were removed under direct visualization and there was no bleeding noted from the port sites. The fascia of the umbilicus was closed using [id number] Vicryl sutures and the subcutaneous tissue was approximated using 3-0 Vicryl sutures. The skin at all four ports were closed using 4-0 Monocryl and Dermabond. A total of 10 millimeters of 0.5% Marcaine was infiltrated around the port sites. The patient was stable throughout the procedure.
[2020-06-02] MEDS: HYDROmorphone 1 mg/mL INJ 1 mL 0.5 MG IVP (14:08)
[2020-06-02] MEDS: HYDROcodone-acetaminophen 5-325 mg Tablet 1 TAB PO (15:00)
--- NOTE | 2020-06-02 15:54 | ANE.PACU2 ---
Inpatient post-anesthesia follow up: Airway intact: Yes Vital signs: Temperature 98.4 F Pulse Rate 84 Respiratory Rate 18 Blood Pressure 145/99 Pulse Oximetry 100 Oxygen Delivery Me thod Room Air Oxygen Flow Rate 6 Fraction of Inspir ed Oxygen Hydration adequate: Yes Nausea and vomiting: No Pain level: 2 Mental status: Baseline
== END 2020-06-02 15:30 | disposition home or self-care (01) ==
PROVIDERS: PCP Family Medicine; Visit Provider Surgery
PROC: 0FT44ZZ Resection of Gallbladder, Percutaneous Endoscopic Approach (ICD-10-PCS; CPT 47562; principal; 2020-06-02 10:35)
DX: K80.10 Calculus of gallbladder with chronic cholecystitis without obstruction (principal); Z79.899 Other long term (current) drug therapy; F17.210 Nicotine dependence, cigarettes, uncomplicated; F31.9 Bipolar disorder, unspecified; F41.9 Anxiety disorder, unspecified; F60.3 Borderline personality disorder
CPT/HCPCS: 47562; 88304; 96374; J0690; J1100; J1170; J2405; J2704; J3010; J3490; J7030

== ENCOUNTER → 2020-06-09 10:46 | Outpatient (BNVA) | payer MEDICAID, SELFPAY | PROVIDERS: PCP Family Medicine; Visit Provider Psychiatry & Neurology Psychiatry | DX: F60.3 Borderline personality disorder (principal); F43.12 Post-traumatic stress disorder, chronic; F33.2 Major depressive disorder, recurrent severe without psychotic features; F41.1 Generalized anxiety disorder | CPT/HCPCS: 99204 ==

== ENCOUNTER → 2020-07-10 08:14 | Outpatient (BNVA) | payer MEDICAID, SELFPAY | PROVIDERS: PCP Family Medicine; Visit Provider Psychiatry & Neurology Psychiatry | DX: F41.1 Generalized anxiety disorder (principal); F31.77 Bipolar disorder, in partial remission, most recent episode mixed; F33.2 Major depressive disorder, recurrent severe without psychotic features; F43.12 Post-traumatic stress disorder, chronic; F60.3 Borderline personality disorder | CPT/HCPCS: 99214 ==

== ENCOUNTER → 2020-08-29 09:07 | Outpatient (BNVA) | payer MEDICAID, SELFPAY | PROVIDERS: PCP Family Medicine; Visit Provider Surgery | DX: R10.9 Unspecified abdominal pain (principal) | CPT/HCPCS: 87635 ==

== ENCOUNTER 2020-09-04 08:33 | Day surgery (SDC) | payer MEDICAID, SELFPAY ==
[2020-09-02 14:13] VITALS: BMI 34.4
--- NOTE | 2020-09-04 08:58 | P.ANESASSM_ITS ---
Pre-Anesthetic Assessment Pre-Anesthetic Assessment: Height/Weight: Height 1.55 m Weight 82.554 kg Preop Diagnosis: Cholelithiasis Proposed Procedure: Operation Date: 09/04/20 10:00 Proposed Procedures p EGD [id number] r10.9(Not Applicable) - Cyrus Rodríguez MD s Colonoscopy(Not Applicable) - Cyrus Rodríguez MD Was Beta Rosa taken within 24 hours: N/A Was Clonidine taken within 24 hours: N/A Social: Social History: Tobacco and No alcohol Exam: Pre-Anes Outpt Exam: alert and oriented x 3 Airway: Submandibular: WNL Cervical ROM: WNL MP: 1 Pulmonary: Pulmonary: None reported CV/HEM: CV/HEM: None reported : : None reported Hepatic: Hepatic: None reported GI: GI: GERD Comments: Nausea and vomiting, blood in stool Musc/skel: Musc/skel: Weakness Neuropsych: Neuropsych: Anxiety, Bipolar, Depression and Neuropathy Anesthetic Plan: ASA status: 3 Anesthesia: MAC PFSH Anesthesia PFSH: Medical History Bipolar disorder Borderline personality disorder YOLANDE (generalized anxiety disorder) History of stillbirth PTSD (post-traumatic stress disorder) Surgical History H/O section H/O esophagogastroduodenoscopy 2018 H/O tubal ligation H/O: hysterectomy History of laparoscopy S/P colonoscopic polypectomy Status post laparoscopic cholecystectomy (06/02/20) Family History Mother Cancer Denies family history of Diabetes CAD (coronary artery disease) Anesthesia complication Bleeding disorder Hypertension Social History Smoking and tobacco status: current every day smoker cigarettes and e- cigarettes E-Cigarette Details: vaporizer device and with nicotine Quit status (tobacco): has tried quititng Number of times tried to quit tobacco: 5 Second hand smoke exposure: No Alcohol intake: current Alcohol intake frequency: holidays/special occasions only Household members: spouse Marital status: Current occupational status: unemployed History of recent travel: No Current gender identity: Female Female Reproductive History: Spontaneous abortions: No Data Anesthesia Cardiac Studies: No Data to Display
[2020-09-04 09:18] VITALS: BP 120/83; PULSE 78; RESP 18; TEMP 36.7; O2SAT 98
--- NOTE | 2020-09-04 09:26 | PC.NURSE ---
\Belly ring placed in bag and placed in patients back pack
[2020-09-04] MEDS: sodium chloride 0.9% 1,000 ML 30 ML IV (09:33)
--- NOTE | 2020-09-04 10:30 | W.PM.OPSFHP ---
Same Day Surgery H&P Indication for Procedure/HPI DATE OF PROCEDURE: September 04, 2020 CHIEF COMPLAINT/INDICATIONFOR SURGICAL PROCEDURE: egd/colon PREOP DIAGNOSIS: Cholelithiasis PLANNED PROCEDRUE: Operation Date: 09/04/20 10:00 Proposed Procedures p EGD [id number] r10.9(Not Applicable) - Cyrus Rodríguez MD s Colonoscopy(Not Applicable) - Cyrus Rodríguez MD Medications/Allergies* Allergies/Adverse Reactions Allergy/AdvReac Type Severity Reaction Status Date / Time No Known Allergies Allergy Verified 08/29/20 11:27 Current Medications: Generic Name Dose Route Start Last Admin Trade Name Freq PRN Reason Stop Dose Admin Sodium Chloride 1,000 mls @ 30 mls/hr 09/04/20 09:00 09/04/20 09:33 Sodium Chloride 0.9% IV 09/05/20 08:59 30 mls/hr .Q24H MARIELLA Administration Pertinent History/Comorbid Conditions* Medical History (Updated 08/06/20 @ 15:41 by Diann Oliveros MD) Bipolar disorder Borderline personality disorder YOLANDE (generalized anxiety disorder) History of stillbirth PTSD (post-traumatic stress disorder) Surgical History (Updated 06/20/20 @ 16:33 by Cyrus Rodríguez MD) H/O section H/O esophagogastroduodenoscopy 2017 H/O tubal ligation H/O: hysterectomy History of laparoscopy S/P colonoscopic polypectomy Status post laparoscopic cholecystectomy (06/02/20) Family History (Updated 03/21/20 @ 10:16 by Maria Luisa Cordon LPN) Cancer Mother Denies family history of Diabetes CAD (coronary artery disease) Anesthesia complication Bleeding disorder Hypertension Social History Smoking and tobacco status: current every day smoker cigarettes and e-cigarettes E-Cigarette Details: vaporizer device and with nicotine Quit status (tobacco): has tried quititng Number of times tried to quit tobacco: 5 Second hand smoke exposure: No Alcohol intake: current Alcohol intake frequency: holidays/special occasions only Household members: spouse Marital status: Current occupational status: unemployed History of recent travel: No Current gender identity: Female Pertinent Exam Findings alert, oriented x 3 and regular rate & rhythm Recommendations Surgery/Procedure today Coding Level of Care Code Acute [employer] Agent [employer] for Roberto Lemus
[2020-09-04 11:03] VITALS: BP 103/56; PULSE 78; RESP 12; TEMP 36.2; O2SAT 94
--- NOTE | 2020-09-04 11:07 | ANE.PACU2 ---
Inpatient post-anesthesia follow up: Airway intact: Yes Vital signs: Temperature 98.1 F Pulse Rate 78 Respiratory Rate 18 Blood Pressure 120/83 Pulse Oximetry 98 Oxygen Delivery Me thod Room Air Oxygen Flow Rate Fraction of Inspir ed Oxygen Hydration adequate: Yes Nausea and vomiting: No Pain level: 1 Mental status: Baseline
[2020-09-04 11:10] VITALS: BP 110/78; PULSE 65; RESP 18; O2SAT 99
[2020-09-04 11:24] VITALS: BP 116/82; PULSE 64; RESP 20; O2SAT 98
== END 2020-09-04 11:45 | disposition home or self-care (01) ==
PROVIDERS: PCP Family Medicine; Visit Provider Surgery
PROC: 0DJ08ZZ Inspection of Upper Intestinal Tract, Via Natural or Artificial Opening Endoscopic (ICD-10-PCS; CPT 43235; principal; 2020-09-04 10:00)
PROC: 0DJD8ZZ Inspection of Lower Intestinal Tract, Via Natural or Artificial Opening Endoscopic (ICD-10-PCS; CPT 45378; 2020-09-04 10:00)
DX: R10.84 Generalized abdominal pain (principal); D12.5 Benign neoplasm of sigmoid colon; K29.70 Gastritis, unspecified, without bleeding; F41.9 Anxiety disorder, unspecified; F17.290 Nicotine dependence, other tobacco product, uncomplicated
CPT/HCPCS: 43239; 45385; 88305; 96360; 96361; J2704; J7030

== ENCOUNTER → 2020-10-01 12:43 | Outpatient (BNVA) | payer MEDICAID, SELFPAY | PROVIDERS: PCP Family Medicine; Visit Provider Psychiatry & Neurology Psychiatry | DX: F31.77 Bipolar disorder, in partial remission, most recent episode mixed (principal); G47.00 Insomnia, unspecified; Z79.899 Other long term (current) drug therapy; Z03.89 Encounter for observation for other suspected diseases and conditions ruled out; F33.2 Major depressive disorder, recurrent severe without psychotic features | CPT/HCPCS: 80053; 80061; 80178; 83036; 84443 ==